=== PATIENT | female | born 1980 | race Hispanic/Latino ===

== ENCOUNTER 2018-12-10 14:18 | Emergency (ER) | payer SELFPAY ==
[2018-12-10] MEDS ORDERED: Fentanyl 100 MCG/2 ML VIAL ONE (14:43)
[2018-12-10] MEDS ORDERED: Ondansetron PF 4 MG/2 ML Vial ONE (14:43)
--- NOTE | 2018-12-10 15:45 | RAD ---
2 views left ankle. HISTORY: Trauma. AP and lateral views left ankle obtained. There is a comminuted fracture involving the distal left fibula with some impaction of the proximal d istal fracture fragments. There also appears to be a comminuted fracture involving the distal left tibial metaphysis with sligh t lateral displacement of the distal fracture fragments. The tibial fracture does not extend intra-articularly. IMPRESSION: Comminuted distal left tibial and fibular fractures. Transcribed Date/Time: 12/10/2018 3:46 PM
[2018-12-10] MEDS ORDERED: Ketamine 50 MG/ML (10ML VIAL) ONE (19:00)
== END 2018-12-10 16:44 | disposition home or self-care (01) ==
LOC: ERS 14:18
DX: S93.05XA Dislocation of left ankle joint, initial encounter (principal); W01.0XXA Fall on same level from slipping, tripping and stumbling without subsequent striking against object, initial encounter
CPT/HCPCS: 27840; 96361; 96374; 96375; J2405; J3010